=== PATIENT | male | born 2005 | race Caucasian/White ===

== ENCOUNTER 2024-11-21 22:17 | Emergency (ER) | payer BC, SELFPAY ==
[2024-11-22] MEDS ORDERED: Lidocaine 1% w/Epinephrine 1:200K 30 ML VIAL ONE (00:49)
== END 2024-11-22 01:48 | disposition home or self-care (01) ==
LOC: CSHERS 22:17
DX: S01.81XA Laceration without foreign body of other part of head, initial encounter (principal); X58.XXXA Exposure to other specified factors, initial encounter; Y93.01 Activity, walking, marching and hiking
CPT/HCPCS: 12011; 99282

== ENCOUNTER 2025-01-03 10:33 | Emergency (ER) | payer BC ==
[2025-01-03] MEDS ORDERED: Acetaminophen 500 MG TAB ONE (12:21)
== END 2025-01-03 12:06 | disposition home or self-care (01) ==
LOC: CSHERS 10:33
DX: A08.4 Viral intestinal infection, unspecified (principal); R11.2 Nausea with vomiting, unspecified
CPT/HCPCS: 87428; 99284; Q0162